=== PATIENT | female | born 1980 | race Caucasian/White ===

== ENCOUNTER → 2016-09-07 | Outpatient (CLI) | payer BC ==
[~2016-09-07] MED LIST: CETI10TA84 PO; DIPH25CA37 PO; IVER1CRE TD; MULT-506 PO; SULF800T23 PO
--- NOTE | 2016-09-07 14:46 | DIAGNOSTIC IMAGING REPORT ---
RIGHT ANKLE MIN 3 VIEWS, RIGHT TIBIA/FIBULA 2 VIEWS CLINICAL HISTORY: RIGHT ANKLE AND LOWER LEG PAIN Right COMPARISON STUDY: Right ankle 07/21/2015. FINDINGS: Lateral cortical plate transfixed with screws bridging an old, healed distal fibular fracture. The hardware is intact. Mild soft tissue swelling within the right ankle. No acute fracture or dislocation within the right tibia, fibula, or right ankle. IMPRESSION: Old, healed distal fibular fracture. No acute fracture or dislocation within the right lower leg or right ankle. Electronically signed by: Asad Seaman M.D. 09/07/2016 2:44 PM Dictated Date/Time: 09/07/2016 2:42 PM
== END | disposition home or self-care (01) ==
LOC: C.RDSM 14:30
PROVIDERS: ATTEND Physical Medicine & Rehabilitation Sports Medicine
DX: R52 Pain, unspecified (principal)